=== PATIENT | female | born 1995 ===

== ENCOUNTER → 2022-12-08 10:00 | Outpatient (BNVA) | payer BC, SELFPAY | PROVIDERS: Visit Provider Nurse Practitioner Women's Health | DX: Z12.4 Encounter for screening for malignant neoplasm of cervix (principal) | CPT/HCPCS: 88175 ==

== ENCOUNTER 2023-12-16 09:14 | Emergency (ER) | payer BC, MEDICAID, SELFPAY ==
[2023-12-16] VITALS (7 sets, daily range): BP systolic 117–123; BP diastolic 76–81; PULSE 45–64; RESP 14–20; TEMP 36.6; O2SAT 96–100
--- NOTE | 2023-12-16 09:21 | XRR_ITS ---
PROCEDURE INFORMATION: Exam: XR Cervical Spine Exam date and time: 12/16/2023 9:48 AM Age: 28 years old Clinical indication: Neck pain TECHNIQUE: Imaging protocol: Radiologic exam of the cervical spine. Views: 2 or 3 views. COMPARISON: No relevant prior studies available. FINDINGS: Bones/joints: Normal. No acute fracture. Normal alignment. Soft tissues: Unremarkable. Multiple foreign bodies external to the patient project over the neck. XR/XR cervical spine 3V* [id number] IMPRESSION: No acute findings.
[2023-12-16 09:39] LABS: Basophils # 0.1 10^3/uL (0.0-0.1); Basophils % 0.7 %; Eosinophils # 0.2 10^3/uL (0.0-0.8); Eosinophils % 1.9 %; Hematocrit 41.8 % (36-47); Lymphocytes # 2.9 10^3/uL (0.8-4.8); Lymphocytes % 28.3 %; Mean Corpuscular HGB Conc 33.5 g/dL (30-55); Mean Corpuscular Hemoglobin 31.8 pg (27-33); Mean Platelet Volume 9.6 fL (7.4-10.4); Monocytes # 0.5 10^3/uL (0.2-0.9); Monocytes % 5.2 %; Neutrophils # 6.41 10^3/uL (1.8-7.7); Neutrophils % 63.5 %; Nucleated Red Blood Cells % 0 %; Platelet Count 270 10^3/cmm (157-399); Red Cell Distribution Width 13.4 % (12.1-15.1); White Blood Count 10.08 10^3/uL (3.29-11.43)
[2023-12-16] MEDS: morphine 4 mg/mL SDV 1 mL IVP ×2 (09:39→10:14)
[2023-12-16] MEDS: ketorolac 30 mg/mL INJ IVP (09:41)
[2023-12-16] MEDS: dexamethasone 10 mg/mL INJ IM (09:42)
[2023-12-16] MEDS: orphenadrine 30 mg/mL Inj 2 mL 60 MG IM (09:43)
[2023-12-16 09:55] LABS: Alanine Aminotransferase 20 U/L (0-33); Albumin Level 4.5 g/dL (3.5-5.2); Alkaline Phosphatase 75 U/L (35-105); Anion Gap 16.8 (5-19); Aspartate Amino Transferase 15 U/L (0-32); Blood Urea Nitrogen 8 mg/dL (6-20); Calcium 8.9 mg/dL (8.5-10.5); Carbon Dioxide 23 mmol/L (22-29); Chloride 104 mmol/L (98-107); Creatinine Clr Calc Pharmacy 140.8621; Globulin 2.6 g/dL (1.3-4.6); Glomerular Filtration Rate 117.4 mL/min (90-130); Glucose 91 mg/dL (65-115); Osmolality Calculated 288 mOsm/kg (285-295); Potassium 3.8 mmol/L (3.5-5.1); Sodium 140 mmol/L (136-145); Total Bilirubin 0.7 mg/dL (0.15-1.2); Total Protein 7.1 g/dL (6.6-8.7)
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
[2023-12-16] MEDS: ondansetron 2 mg/ML SDV 2 mL 4 MG IVP (10:56)
[2023-12-16] MEDS: HYDROmorphone 1 mg/mL INJ 1 mL IVP (11:16)
== END 2023-12-16 12:01 | disposition home or self-care (01) ==
PROVIDERS: Emergency Provider Family Medicine
DX: M54.2 Cervicalgia (principal)
CPT/HCPCS: 36415; 72040; 80053; 85025; 96372; 96374; 96375; 96376; 99284; J1100; J1170; J1885; J2270; J2360; J2405